=== PATIENT | female | born 1970 | race Asian ===

== ENCOUNTER 2016-03-08 07:50 | Day surgery (SDC) | payer OTHER ==
[~2016-03-08] VITALS: Ht 30.5 cm; Wt 0.5 kg
[~2016-03-08 07:50] MED LIST: ACID CONTROL150 MG OR; ACTOS45 MG PO; ATEN25TA21 PO; FERRETTS325 MG OR; GLUCOPHAGE1000 MG PO; LISI10TA11 PO; MEDR10TA4 PO; METF100038 OR; NEXIUM40 M1 OR; NITR0.4S2 SL; SIMV20TA2 PO
== END 2016-03-08 09:45 | disposition home or self-care (01) ==
LOC: OR 07:50
PROC: 0DB68ZZ Excision of Stomach, Via Natural or Artificial Opening Endoscopic (ICD-10-PCS; principal; 2016-03-08)
PROC: 0D738ZZ Dilation of Lower Esophagus, Via Natural or Artificial Opening Endoscopic (ICD-10-PCS; 2016-03-08)
DX: K29.50 Unspecified chronic gastritis without bleeding (principal); K22.2 Esophageal obstruction; R10.13 Epigastric pain; R13.19 Other dysphagia
CPT/HCPCS: J2001; J2704

== ENCOUNTER 2016-03-15 19:43 | Emergency (ER) | payer OTHER ==
[~2016-03-15] VITALS: Ht 160 cm; Wt 96.6 kg
[2016-03-15 21:42] VITALS: BP 140/81; TEMP 98.5
== END 2016-03-15 21:50 | disposition home or self-care (01) ==
LOC: ED 19:43
DX: R10.13 Epigastric pain (principal)
CPT/HCPCS: 99282

== ENCOUNTER 2016-03-26 21:19 | Emergency (ER) | payer OTHER ==
[~2016-03-26] VITALS: Ht 160 cm; Wt 96.6 kg
[2016-03-26 22:11] LABS: PLATELET COUNT 363 K/uL (152-353)
[2016-03-26 22:19] LABS: POTASSIUM 3.3 mmol/L (3.6-5.2); SODIUM 137 mmol/L (136-145)
[2016-03-27] MEDS ORDERED: CLON0.1T16 PO (00:21)
[2016-03-27] MEDS ORDERED: DIOVAN HC1 PO (00:21)
[2016-03-27 00:25] VITALS: BP 182/103; TEMP 98.4
== END 2016-03-27 00:26 | disposition home or self-care (01) ==
LOC: ED 21:19
DX: R55 Syncope and collapse (principal); I10 Essential (primary) hypertension
CPT/HCPCS: 36415; 80053; 85027; 93005; 99284

== ENCOUNTER 2016-04-10 16:21 | Emergency (ER) | payer OTHER ==
[~2016-04-10] VITALS: Ht 160 cm; Wt 95.3 kg
[~2016-04-10 16:21] MED LIST changes: +CLON0.1T16 PO; +DIOVAN HC1 PO
[2016-04-10 16:31] VITALS: BP 110/48; TEMP 97.7
[2016-04-10 17:14] LABS: PLATELET COUNT 293 K/uL (152-353)
[2016-04-10 17:29] LABS: POTASSIUM 4.3 mmol/L (3.6-5.2)
== END 2016-04-10 18:33 | disposition home or self-care (01) ==
LOC: ED 16:21
DX: G43.809 Other migraine, not intractable, without status migrainosus (principal); E11.9 Type 2 diabetes mellitus without complications; N18.9 Chronic kidney disease, unspecified
CPT/HCPCS: 36415; 80053; 85027; 96374; 96376; 99284; J1100; J1200; J1885; J2405

== ENCOUNTER 2016-05-02 19:57 | Emergency (ER) | payer OTHER ==
[~2016-05-02] VITALS: Ht 160 cm; Wt 97.5 kg
[2016-05-02 22:46] VITALS: BP 110/79; TEMP 98.3
== END 2016-05-02 22:47 | disposition home or self-care (01) ==
LOC: ED 19:57
DX: R10.13 Epigastric pain (principal)
CPT/HCPCS: 99283

== ENCOUNTER 2016-06-16 11:25 | Outpatient (CLI) | payer OTHER ==
[2016-06-16 13:32] LABS: PLATELET COUNT 349 K/uL (152-353)
== END 2016-06-16 19:09 | disposition home or self-care (01) ==
LOC: MAMMO 11:25
PROVIDERS: Specialist
DX: Z12.31 Encounter for screening mammogram for malignant neoplasm of breast (principal); D50.8 Other iron deficiency anemias; R68.81 Early satiety; K30 Functional dyspepsia
CPT/HCPCS: 36415; 85027; A9541; G0202-TC

== ENCOUNTER 2016-06-17 13:45 | Outpatient (CLI) | payer OTHER | END 2016-06-17 19:12 | disposition home or self-care (01) | LOC: LAB 13:45 | DX: D50.8 Other iron deficiency anemias (principal) | CPT/HCPCS: 82272; 87338 ==

== ENCOUNTER 2016-09-01 20:53 | Emergency (ER) | payer OTHER ==
[~2016-09-01] VITALS: Ht 160 cm; Wt 93.0 kg
[2016-09-01 22:23] VITALS: BP 102/75; TEMP 98
== END 2016-09-01 22:24 | disposition home or self-care (01) ==
LOC: ED 20:53
DX: R42 Dizziness and giddiness (principal)
CPT/HCPCS: 82962; 99283

== ENCOUNTER 2017-03-13 17:45 | Emergency (ER) | payer OTHER ==
[~2017-03-13] VITALS: Ht 160 cm; Wt 90.7 kg
[2017-03-13 21:18] VITALS: BP 129/78; TEMP 97.9
== END 2017-03-13 21:22 | disposition home or self-care (01) ==
LOC: ED 17:45
DX: B34.9 Viral infection, unspecified (principal)
CPT/HCPCS: 87804; 99283

== ENCOUNTER 2017-07-08 13:55 | Emergency (ER) | payer OTHER ==
[~2017-07-08] VITALS: Ht 160 cm; Wt 93.0 kg
[2017-07-08 15:30] LABS: PLATELET COUNT 399 K/uL (152-353)
[2017-07-08 15:32] LABS: POTASSIUM 4.3 mmol/L (3.6-5.2)
[2017-07-08 15:49] LABS: PARTIAL THROMBOPLASTIN TIME 25.6 SECONDS (24.5-33.6)
[2017-07-08 16:37] VITALS: BP 129/70; TEMP 97.3
== END 2017-07-08 16:39 | disposition home or self-care (01) ==
LOC: ED 13:55
PROVIDERS: Specialist
DX: R10.13 Epigastric pain (principal)
CPT/HCPCS: 36415; 80053; 82550; 84484; 85027; 85379; 85610; 85730; 93005; 99283

== ENCOUNTER 2017-07-23 13:39 | Outpatient (CLI) | payer OTHER | END 2017-07-23 13:43 | disposition short-term general hospital (02) | LOC: AMB 13:39 | DX: M54.89 Other dorsalgia (principal) | CPT/HCPCS: A0425; A0429 ==

== ENCOUNTER 2017-07-23 13:45 | Emergency (ER) | payer OTHER ==
[~2017-07-23] VITALS: Ht 160 cm; Wt 89.8 kg
[2017-07-23 15:42] LABS: PLATELET COUNT 406 K/uL (152-353)
[2017-07-23 18:40] VITALS: BP 130/83; TEMP 98.5
== END 2017-07-23 18:43 | disposition home or self-care (01) ==
LOC: ED 13:45
DX: R10.2 Pelvic and perineal pain (principal)
CPT/HCPCS: 81000; 85027; 96372; 99283; J1885

== ENCOUNTER 2017-08-13 16:52 | Outpatient (CLI) | payer OTHER | END 2017-08-13 16:55 | disposition short-term general hospital (02) | LOC: AMB 16:52 | DX: R11.2 Nausea with vomiting, unspecified (principal) | CPT/HCPCS: A0425; A0429 ==

== ENCOUNTER 2017-08-13 17:05 | Emergency (ER) | payer OTHER ==
[~2017-08-13] VITALS: Ht 160 cm; Wt 94.8 kg
[2017-08-13 17:44] LABS: PLATELET COUNT 395 K/uL (152-353)
[2017-08-13 18:14] LABS: POTASSIUM 5.1 mmol/L (3.6-5.2)
[2017-08-13 19:58] VITALS: BP 124/86; TEMP 98.6
== END 2017-08-13 19:59 | disposition home or self-care (01) ==
LOC: ED 17:05
PROVIDERS: Emergency Medicine
DX: R10.84 Generalized abdominal pain (principal)
CPT/HCPCS: 36415; 80053; 81000; 85027; 96372; 99283; J1885

== ENCOUNTER 2017-08-19 15:46 | Outpatient (CLI) | payer OTHER | END 2017-08-19 16:03 | disposition short-term general hospital (02) | LOC: AMB 15:46 | DX: R10.0 Acute abdomen (principal) | CPT/HCPCS: A0425; A0427 ==

== ENCOUNTER 2017-08-19 16:15 | Emergency (ER) | payer OTHER ==
[~2017-08-19] VITALS: Ht 160 cm; Wt 94.8 kg
[2017-08-19 16:31] LABS: PLATELET COUNT 399 K/uL (152-353)
[2017-08-19 16:46] LABS: POTASSIUM 4.5 mmol/L (3.6-5.2)
[2017-08-19 21:05] VITALS: BP 11/76; TEMP 98.1
== END 2017-08-19 21:14 | disposition home or self-care (01) ==
LOC: ED 16:15
DX: D25.9 Leiomyoma of uterus, unspecified (principal); R10.30 Lower abdominal pain, unspecified
CPT/HCPCS: 36415; 80053; 81000; 82150; 83690; 85027; 96374; 96375; 99284; J1885; J2405; Q9963

== ENCOUNTER 2017-12-28 14:56 | Outpatient (CLI) | payer OTHER | END 2017-12-28 20:16 | disposition home or self-care (01) | LOC: MAMMO 14:56 | DX: Z12.31 Encounter for screening mammogram for malignant neoplasm of breast (principal) ==

== ENCOUNTER 2018-03-12 15:32 | Outpatient (CLI) | payer OTHER ==
[2018-03-12] MEDS ORDERED: ATEN50TA36 PO (15:44)
[2018-03-12] MEDS ORDERED: PANTOPRAZOLE 40MG TA PO (15:45)
[2018-03-12] MEDS ORDERED: FERROUS SULF325 M1 PO (15:45)
[2018-03-12] MEDS ORDERED: MOBIC15 MG PO (15:48)
== END 2018-03-12 15:36 | disposition short-term general hospital (02) ==
LOC: AMB 15:32
DX: R10.9 Unspecified abdominal pain (principal)
CPT/HCPCS: A0425; A0427

== ENCOUNTER 2018-03-12 15:36 | Emergency (ER) | payer OTHER ==
[~2018-03-12] VITALS: Ht 157.5 cm; Wt 88.5 kg
[2018-03-12] MEDS ORDERED: ATEN50TA36 PO (15:44)
[2018-03-12 15:45] VITALS: TEMP 97.3
[2018-03-12] MEDS ORDERED: PANTOPRAZOLE 40MG TA PO (15:45)
[2018-03-12] MEDS ORDERED: FERROUS SULF325 M1 PO (15:45)
[2018-03-12] MEDS ORDERED: MOBIC15 MG PO (15:48)
[2018-03-12 17:07] LABS: PLATELET COUNT 341 K/uL (152-353)
[2018-03-12 17:10] LABS: POTASSIUM 4.4 mmol/L (3.6-5.2)
[2018-03-12 18:09] VITALS: BP 112/66
== END 2018-03-12 18:10 | disposition home or self-care (01) ==
LOC: ED 15:36
PROVIDERS: Family Medicine
DX: K29.60 Other gastritis without bleeding (principal); K59.09 Other constipation
CPT/HCPCS: 36415; 74022; 80053; 81000; 85027; 99283

== ENCOUNTER 2018-04-05 14:55 | Outpatient (CLI) | payer OTHER ==
[~2018-04-05 14:55] MED LIST changes: +ATEN50TA36 PO; +FERROUS SULF325 M1 PO; +MOBIC15 MG PO; +PANTOPRAZOLE 40MG TA PO
== END 2018-04-05 20:43 | disposition home or self-care (01) ==
LOC: LABW 14:55
DX: B35.1 Tinea unguium (principal)
CPT/HCPCS: 36415; 84450; 84460

== ENCOUNTER 2018-05-14 14:52 | Outpatient (CLI) | payer OTHER | END 2018-05-14 21:04 | disposition home or self-care (01) | LOC: LABW 14:52 | DX: B35.1 Tinea unguium (principal) | CPT/HCPCS: 36415; 84450; 84460 ==

== ENCOUNTER 2018-05-19 12:50 | Outpatient (CLI) | payer OTHER | END 2018-05-19 12:54 | disposition short-term general hospital (02) | LOC: AMB 12:50 | DX: M25.512 Pain in left shoulder (principal) | CPT/HCPCS: A0425; A0429 ==

== ENCOUNTER 2018-05-19 13:08 | Emergency (ER) | payer OTHER ==
[~2018-05-19] VITALS: Ht 157.5 cm; Wt 11.3 kg
[2018-05-19 14:15] VITALS: BP 115/73; TEMP 97.7
== END 2018-05-19 14:18 | disposition home or self-care (01) ==
LOC: ED 13:08
DX: S46.812A Strain of other muscles, fascia and tendons at shoulder and upper arm level, left arm, initial encounter (principal)
CPT/HCPCS: 99282

== ENCOUNTER 2018-10-08 13:38 | Outpatient (CLI) | payer OTHER | END 2018-10-08 16:00 | disposition home or self-care (01) | LOC: LABW 13:38 | DX: B35.1 Tinea unguium (principal) | CPT/HCPCS: 36415; 84450; 84460 ==

== ENCOUNTER 2019-01-23 09:15 | Outpatient (CLI) | payer OTHER | END 2019-01-23 20:34 | disposition home or self-care (01) | LOC: MAMMO 09:15 | DX: Z12.31 Encounter for screening mammogram for malignant neoplasm of breast (principal) ==

== ENCOUNTER 2019-03-03 16:56 | Outpatient (CLI) | payer OTHER | END 2019-03-03 16:59 | disposition short-term general hospital (02) | LOC: AMB 16:56 | DX: M25.512 Pain in left shoulder (principal) | CPT/HCPCS: A0425; A0429 ==

== ENCOUNTER 2019-03-03 17:01 | Emergency (ER) | payer OTHER ==
[~2019-03-03] VITALS: Ht 157.5 cm; Wt 99.8 kg
[2019-03-03 17:01] VITALS: TEMP 97.3
[2019-03-03 18:59] VITALS: BP 90/64
== END 2019-03-03 19:00 | disposition home or self-care (01) ==
LOC: ED 17:05
DX: M75.52 Bursitis of left shoulder (principal)
CPT/HCPCS: 93005; 96372; 99283; J1885

== ENCOUNTER 2020-08-01 16:44 | Emergency (ER) | payer OTHER ==
[~2020-08-01] VITALS: Ht 157.5 cm; Wt 95.3 kg
[2020-08-01] MEDS ORDERED: VITAMIN D5000 UNIT PO (16:53)
[2020-08-01] MEDS ORDERED: TRICOR145 M1 PO (16:54)
[2020-08-01] MEDS ORDERED: CVS ALLERGY REL10 MG PO (16:54)
[2020-08-01 21:02] VITALS: BP 124/80; TEMP 98.2
== END 2020-08-01 21:02 | disposition home or self-care (01) ==
LOC: ED 16:44
DX: M54.5 Low back pain (principal); M47.896 Other spondylosis, lumbar region
CPT/HCPCS: 81000; 96372; 99283; J1885

== ENCOUNTER 2021-08-20 15:06 | Emergency (ER) | payer OTHER ==
[~2021-08-20] VITALS: Ht 157.5 cm; Wt 88.0 kg
[~2021-08-20 15:06] MED LIST changes: +CVS ALLERGY REL10 MG PO; +TRICOR145 M1 PO; +VITAMIN D5000 UNIT PO
[2021-08-20] MEDS ORDERED: MOTRIN IB200 M1 PO (16:03)
[2021-08-20 16:06] VITALS: BP 152/83; TEMP 96.8
== END 2021-08-20 16:06 | disposition home or self-care (01) ==
LOC: ED 15:06
DX: S39.012A Strain of muscle, fascia and tendon of lower back, initial encounter (principal); V59.9XXA Occupant (driver) (passenger) of pick-up truck or van injured in unspecified traffic accident, initial encounter; Y92.89 Other specified places as the place of occurrence of the external cause
CPT/HCPCS: 99283

== ENCOUNTER 2021-12-09 14:35 | Outpatient (CLI) | payer OTHER ==
[~2021-12-09 14:35] MED LIST changes: +MOTRIN IB200 M1 PO
== END 2021-12-09 19:17 | disposition home or self-care (01) ==
LOC: MAMMO 14:35
PROVIDERS: ATTEND Registered Nurse
DX: Z12.31 Encounter for screening mammogram for malignant neoplasm of breast (principal)